=== PATIENT | female | born 1955 | race Caucasian/White ===

== ENCOUNTER → 2017-03-19 | Outpatient (CLI) | payer BC | LOC: MC.RAD 13:55 | DX: Z12.31 Encounter for screening mammogram for malignant neoplasm of breast (principal) ==

== ENCOUNTER → 2017-05-22 | Outpatient (CLI) | payer BC | LOC: COL.RAD 09:23 | DX: R31.21 Asymptomatic microscopic hematuria (principal); Z96.0 Presence of urogenital implants ==

== ENCOUNTER → 2018-04-08 | Outpatient (CLI) | payer BC | LOC: MC.RAD 04-07 10:40 | DX: Z12.31 Encounter for screening mammogram for malignant neoplasm of breast (principal) ==

== ENCOUNTER → 2019-07-07 | Outpatient (CLI) | payer MEDICARE, BC | LOC: MC.RAD 08:51 | DX: Z12.31 Encounter for screening mammogram for malignant neoplasm of breast (principal) ==

== ENCOUNTER 2019-12-30 10:45 | Outpatient (RCR) | payer MEDICARE, BC ==
[2020-01-14] MEDS ORDERED: LIPITOR 40MG TA40 MG PO (13:24)
[2020-01-14] MEDS ORDERED: CYMBALTA 60MG60 MG PO (13:25)
[2020-01-14] MEDS ORDERED: CYMBALTA 30MG30 MG PO (13:25)
[2020-01-14] MEDS ORDERED: NEURONTIN300 MG/CAP PO (13:27)
[2020-01-14] MEDS ORDERED: FISH OIL 1000MG1 CAP PO (13:27)
[2020-01-14] MEDS ORDERED: PRILOSEC 20MG20 MG PO (13:28)
[2020-01-14] MEDS ORDERED: VESICARE10 MG PO (13:28)
[2020-01-14] MEDS ORDERED: DAILY MULTIPLE1 T19 PO (13:28)
[2020-01-14] MEDS ORDERED: PHARMASSURE ZIN50 MG PO (13:29)
[2020-01-14] MEDS ORDERED: VITAMIN C500 MG PO (13:29)
[2020-01-14] MEDS ORDERED: TYLENOL W/COD1 UDTAB PO (13:34)
[2020-01-14] MEDS ORDERED: WELLBUTRIN XL150 MG PO (13:38)
[2020-01-14] MEDS ORDERED: XANAX .25M0.25 MG/TA PO (13:38)
[2020-01-14] MEDS ORDERED: COLACE 100100 MG/CAP PO (13:40)
== END 2019-12-30 12:06 | disposition home or self-care (01) ==
LOC: MKS.ESL.PT 10:45
DX: S83.206A Unspecified tear of unspecified meniscus, current injury, right knee, initial encounter (principal); Z98.890 Other specified postprocedural states

== ENCOUNTER → 2020-02-01 | Outpatient (CLI) | payer MEDICARE, BC ==
[~2020-02-01] MED LIST: COLACE 100100 MG/CAP PO; CYMBALTA 30MG30 MG PO; CYMBALTA 60MG60 MG PO; DAILY MULTIPLE1 T19 PO; FISH OIL 1000MG1 CAP PO; LIPITOR 40MG TA40 MG PO; NEURONTIN300 MG/CAP PO; PHARMASSURE ZIN50 MG PO; PRILOSEC 20MG20 MG PO; TYLENOL W/COD1 UDTAB PO; VESICARE10 MG PO; VITAMIN C500 MG PO; WELLBUTRIN XL150 MG PO; XANAX .25M0.25 MG/TA PO
== END ==
LOC: COL.PUL
DX: C34.11 Malignant neoplasm of upper lobe, right bronchus or lung (principal); F17.210 Nicotine dependence, cigarettes, uncomplicated

== ENCOUNTER → 2020-09-21 | Outpatient (CLI) | payer MEDICARE, BC | LOC: MC.RAD 13:01 | DX: Z12.31 Encounter for screening mammogram for malignant neoplasm of breast (principal) ==

== ENCOUNTER → 2021-10-05 | Outpatient (CLI) | payer MEDICARE, BC | LOC: MC.RAD 10:45 | DX: Z12.31 Encounter for screening mammogram for malignant neoplasm of breast (principal) ==

== ENCOUNTER 2022-02-09 11:31 | Emergency (ER) | payer MEDICARE, BC ==
[~2022-02-09] VITALS: Ht 162.6 cm; Wt 79.5 kg
[2022-02-09 11:37] VITALS: TEMP 97.1
[2022-02-09 11:54] LABS: BASO % 0.2 % (0.0-2.0); EOS # 0.6 K/mm3 (0.0-0.7); EOS % 5.3 % (0.0-4.0); GRAN # 7.9 K/mm3 (1.4-6.5); GRAN % 72.5 % (42.2-75.2); HEMOGLOBIN 12.6 g/dl (12.5-16.0); LYMPH # 1.7 K/mm3 (1.2-3.4); LYMPH % 15.4 % (20.0-51.0); MEAN CELL VOLUME 96 fl (80.0-100.0); MEAN CORPUSCULAR HEMOGLOBIN 33 pg (27-31); MEAN CORPUSCULAR HGB CONC 35 g/dl (33.0-37.0); MEAN PLATELET VOLUME 9.8 fl (7.4-10.4); MONO # 0.7 K/mm3 (0.1-0.6); MONO % 6.4 % (1.7-9.3); PLATELET COUNT 265 K/mm3 (130-400); RED BLOOD COUNT 3.79 M/mm3 (4.10-5.30); REDCELL DISTRIBUTION WIDTH-CV 13.6 % (11.5-14.5)
[2022-02-09 11:55] LABS: HEMATOCRIT 36.3 % (37.0-47.0)
[2022-02-09 12:13] LABS: ALBUMIN 3.9 gm/dL (3.4-4.8); BILIRUBIN,TOTAL 0.8 mg/dL (0.2-1.2); CALCIUM 9.5 mg/dL (8.4-10.2); CREATININE, serum 0.84 mg/dL (0.57-1.11); POTASSIUM 4.1 mmol/L (3.5-4.5); TOTAL PROTEIN 6.7 gm/dL (6.2-8.1)
[2022-02-09 12:27] LABS: TROPONIN-I 0.939 ng/mL (0.00-0.033)
[2022-02-09 13:27] LABS: PARTIAL THROMBOPLASTIN TIME 31.6 SECONDS (26.0-37.0)
[2022-02-09 14:40] LABS: INR 1.2 (0.8-3.0); PROTHROMBIN TIME 13.2 SECONDS (9.7-12.8)
[2022-02-09 16:24] VITALS: BP 151/85; PULSE 73
== END 2022-02-09 16:25 | disposition short-term general hospital (02) ==
LOC: COL.ER 11:31
PROVIDERS: Emergency Medicine
DX: I21.4 Non-ST elevation (NSTEMI) myocardial infarction (principal); Z98.61 Coronary angioplasty status; Z87.891 Personal history of nicotine dependence
CPT/HCPCS: J1644; Q9967

== ENCOUNTER → 2023-04-04 | Outpatient (CLI) | payer MEDICARE, BC ==
[~2023-04-04] MED LIST changes: +ASPIRIN E.C. 8181 MG PO; +CLARITIN REDITAB5 MG; +EFFIENT10 MG PO; +EMLA CREAM TOP; -LIPITOR 40MG TA40 MG PO; +LIPITOR 80MG80 MG PO; +NATURAL MAGNES200 MG PO; +OPDIVO240 MG/24 IV; +PHOSLO667 MG PO; +PROAIR HFA0.09 MG/AC IH; +TOPROL XL 50MG50 MG PO; +TYLENOL 325MG325 MG PO; +VITAMIN D31000 IU PO; -WELLBUTRIN XL150 MG PO; +WELLBUTRIN XL300 M1 PO; +YERVOY; +ZOFRAN 4MG T4 MG/TAB PO
== END ==
LOC: CANSCHCLI → MC.RAD 12:44
DX: Z12.31 Encounter for screening mammogram for malignant neoplasm of breast (principal)

== ENCOUNTER → 2024-03-19 | Outpatient (CLI) | payer MEDICARE, BC ==
[~2024-03-19] MED LIST changes: +CLARITIN 1010 MG/TAB PO; -CLARITIN REDITAB5 MG; +COMPLETE MULTI1 TAB PO; +ELIQUIS 5MG PO; +Iohexol 300 - 100 ML VIAL IV ONE; +NORCO 325 MG-7.1 TAB PO; +NS 100 ML IV SCH; +OMEGA-31 SGL PO; +PROLIA60 MG/ML SQ; +TESSALON P100 MG/CAP PO; +VITAMIN E 400 U4001 PO; -ZOFRAN 4MG T4 MG/TAB PO; +ZOFRAN ODT8 MG PO
== END ==
LOC: COL.RAD 09:23
DX: C34.11 Malignant neoplasm of upper lobe, right bronchus or lung (principal)
CPT/HCPCS: Q9967

== ENCOUNTER 2024-04-03 13:36 | Emergency (ER) | payer MEDICARE, BC ==
[~2024-04-03] VITALS: Ht 160 cm; Wt 65.9 kg
[~2024-04-03 13:36] MED LIST changes: -Iohexol 300 - 100 ML VIAL IV ONE; -NS 100 ML IV SCH
[2024-04-03 13:44] VITALS: TEMP 98.4
[2024-04-03] MEDS ORDERED: NS 500 ML IV ONE (15:15)
[2024-04-03 15:51] LABS: ALBUMIN 2.8 g/dL (3.4-4.8); BILIRUBIN,TOTAL 0.5 mg/dL (0.2-1.2); CREATININE, serum 0.77 mg/dL (0.57-1.11); POTASSIUM 3.2 mEq/L (3.5-4.5); TOTAL PROTEIN 5.6 g/dl (6.2-8.1)
[2024-04-03 15:57] LABS: BASO % 0.2 % (0.0-2.0); EOS # 0.1 K/mm3 (0.0-0.7); EOS % 0.6 % (0.0-4.0); GRAN # 7.6 K/mm3 (1.4-6.5); GRAN % 80.2 % (42.2-75.2); HEMATOCRIT 32.5 % (37.0-47.0); HEMOGLOBIN 10.8 g/dl (12.5-16.0); LYMPH # 1.2 K/mm3 (1.2-3.4); LYMPH % 12.3 % (20.0-51.0); MEAN CELL VOLUME 108 fl (80.0-100.0); MEAN CORPUSCULAR HEMOGLOBIN 36 pg (27-31); MEAN CORPUSCULAR HGB CONC 33 g/dl (33.0-37.0); MEAN PLATELET VOLUME 9.8 fl (7.4-10.4); MONO # 0.6 K/mm3 (0.1-0.6); MONO % 6.5 % (1.7-9.3); PLATELET COUNT 199 K/mm3 (130-400); RED BLOOD COUNT 3.01 M/mm3 (4.10-5.30); REDCELL DISTRIBUTION WIDTH-CV 12.8 % (11.5-14.5)
[2024-04-03] MEDS ORDERED: LEVAQUIN 5500 MG/TA1 PO (17:36)
[2024-04-03 17:37] VITALS: BP 116/71; PULSE 76
== END 2024-04-03 18:10 | disposition home or self-care (01) ==
LOC: COL.ER 13:36
PROVIDERS: Emergency Medicine; Personal Emergency Response Attendant
DX: J40 Bronchitis, not specified as acute or chronic (principal); R09.02 Hypoxemia; Z88.0 Allergy status to penicillin; Z88.2 Allergy status to sulfonamides; Z88.1 Allergy status to other antibiotic agents
CPT/HCPCS: J1956; J7040